=== PATIENT | female | born 1985 | race Hispanic/Latino ===

== ENCOUNTER 2017-05-01 12:41 | Emergency (ER) | payer OTHER ==
[2017-05-01 12:42] VITALS: BMI 25.6
[2017-05-01 13:01] VITALS: BP 120/77; RESP 18; TEMP 98.6
--- NOTE | 2017-05-01 13:12 | ED PDOC ---
Arrival/HPI - General Chief Complaint: Cough, Cold, Congestion Time Seen by Provider: 05/01/17 13:09 Historian: Patient - History of Present Illness Narrative History of Present Illness (Text): 05/01/17 13:09 31 y/o female, chronic smoker, nkda, c/o coughing x 2 weeks. pt. stated that she has been coughing for the past 2 weeks, productive coughing with white phelgm color, no fever or chills, no chest pain or shortness of breath, no leg swelling, no other medical or psychological complaints. Past Medical History - Provider Review Nursing Documentation Reviewed: Yes - Infectious Disease Hx of Infectious Diseases: None - Tetanus Immunization Tetanus Immunization: Unknown - Reproductive Menopause: No - Past Medical History Past Medical History: No Previous - Hematological/Oncological Hx Hepatitis C: Yes - Psychiatric Hx Depression: No Hx Emotional Abuse: No Hx Physical Abuse: No Hx Substance Use: No - Past Surgical History Past Surgical History: No Previous - Anesthesia Hx Anesthesia: No - Suicidal Assessment Feels Threatened In Home Enviroment: No Family/Social History - Physician Review Nursing Documentation Reviewed: Yes Family/Social History: Unknown Family HX Smoking Status: Heavy Smoker > 10 Cigarettes Daily Hx Alcohol Use: No Hx Substance Use: No Allergies/Home Meds Allergies/Adverse Reactions: Allergies seasonal Allergy (Uncoded 05/01/17 13:03) CONGESTION Review of Systems - Review of Systems Constitutional: absent: Fatigue, Fevers Eyes: absent: Vision Changes ENT: absent: Hearing Changes Respiratory: Cough, Sputum. absent: SOB, Wheezing Cardiovascular: absent: Chest Pain Gastrointestinal: absent: Abdominal Pain, Diarrhea, Nausea, Vomiting Musculoskeletal: absent: Arthralgias, Back Pain Skin: absent: Rash, Pruritis, Skin Lesions Neurological: absent: Headache, Dizziness, Focal Weakness Endocrine: absent: Diaphoresis Physical Exam Vital Signs Reviewed: Yes Vital Signs Temp Pulse Resp BP Pulse Ox 05/01/17 13:13 89 18 120/77 98 05/01/17 12:57 98.6 F 90 18 120/77 97 Temperature: Afebrile Blood Pressure: Normal Pulse: Regular Respiratory Rate: Normal Appearance: Positive for: Well-Appearing, Non-Toxic, Comfortable Pain Distress: None Mental Status: Positive for: Alert and Oriented X 3 - Systems Exam Head: Present: Atraumatic, Normocephalic Pupils: Present: PERRL Extroacular Muscles: Present: EOMI Conjunctiva: Present: Normal Mouth: Present: Moist Mucous Membranes Neck: Present: Normal Range of Motion Respiratory/Chest: Present: Clear to Auscultation, Good Air Exchange, Rhonchi ( rt. middle lobe that clear with coughing). No: Respiratory Distress, Accessory Muscle Use, Wheezes, Decreased Breath Sounds, Rales, Retracting, Tachypneic, Tender to Palpation Cardiovascular: Present: Regular Rate and Rhythm, Normal S1, S2, Other (no pedal edema). No: Murmurs Abdomen: Present: Normal Bowel Sounds. No: Tenderness, Distention, Peritoneal Signs Back: Present: Normal Inspection Upper Extremity: Present: Normal Inspection. No: Cyanosis, Edema Lower Extremity: Present: Normal Inspection. No: Edema Neurological: Present: GCS=15, CN II-XII Intact, Speech Normal Skin: Present: Warm, Dry, Normal Color. No: Rashes Psychiatric: Present: Alert, Oriented x 3, Normal Insight, Normal Concentration Medical Decision Making ED Course and Treatment: 05/01/17 13:11 -chest xray -prednisone 05/01/17 14:03 -Chest xray show copd changes with no definite pneumonia. -Pt. completed course of z-pack about 1 week ago but no steroid. -Discharge home with doxycycline, prednisone, albuterol MDI, promethazine dm, stop smoking, follow up with your own pmd and [facility] specialist for PFT test within 2 days, return to the ER for any new or worsening signs or symptoms. - RAD Interpretation Radiology Orders: 05/01/17 13:09 CHEST TWO VIEWS (PA/LAT) [RAD] Stat no active disease [employer]ist: Radiologist - Medication Orders Current Medication Orders: Discontinued Medications Azithromycin (Zithromax) 500 mg PO STAT STA PRN Reason: Protocol Stop: 05/01/17 13:12 Last Admin: 05/01/17 13:50 Dose: Prednisone (Prednisone Tab) 60 mg PO STAT ONE Stop: 05/01/17 13:12 Last Admin: 05/01/17 13:39 Dose: 60 mg - PA / MANAGEMENT PSYCHOLOGIST / Resident Statement MD/DO has reviewed & agrees with the documentation as recorded. Disposition/Present on Arrival - Present on Arrival Any Indicators Present on Arrival: No History of DVT/PE: No History of Uncontrolled Diabetes: No Urinary Catheter: No History of Decub. Ulcer: No History Surgical Site Infection Following: None - Disposition Have Diagnosis and Disposition been Completed?: Yes Diagnosis: Bronchitis Disposition: HOME/ ROUTINE Disposition Time: 14:04 Patient Plan: Discharge Condition: GOOD Additional Instructions: -Discharge home with doxycycline, prednisone, albuterol MDI, promethazine dm, stop smoking, follow up with your own pmd and [facility] specialist for PFT test within 2 days, return to the ER for any new or worsening signs or symptoms. Prescriptions: Albuterol Sulfate [Proair Respiclick] 2 puff IH Q6 PRN #1 [email or web address] PRN Reason: Other Doxycycline Hyclate 100 mg PO BID #14 capsule Prednisone 50 mg PO DAILY #4 tablet Promethazine DM [Phenergan DM Syrup] 5 ml PO QID PRN #250 ml PRN Reason: Other Referrals: Ander Delgado MD [Primary Care Provider] - Follow up with primary Forms: WORK NOTE
[2017-05-01 13:14] VITALS: PULSE 89; O2SAT 98
--- NOTE | 2017-05-01 14:22 | RAD ---
HISTORY: coughx 2 weeks COMPARISON: 04/06/2012 TECHNIQUE: Chest PA and lateral FINDINGS: LUNGS: No active pulmonary disease. PLEURA: No significant pleural effusion identified. No pneumothorax apparent. CARDIOVASCULAR: Normal. OSSEOUS STRUCTURES: No significant abnormalities. VISUALIZED UPPER ABDOMEN: Normal. OTHER FINDINGS: None. IMPRESSION: No active disease. No significant interval change compared to the prior examination(s). Concordant results with the preliminary interpretation rendered by the emergency department physician procedure.
== END 2017-05-01 14:18 | disposition home or self-care (01) ==
LOC: ED 12:41
DX: J40 Bronchitis, not specified as acute or chronic (principal); F17.210 Nicotine dependence, cigarettes, uncomplicated